=== PATIENT | male | born 1980 | race Caucasian/White ===

== ENCOUNTER 2019-04-23 | Emergency (ER) | payer BC, OTHER ==
[2019-04-23] MEDS ORDERED: PROMETHAZINE INJ 25 MG/ML AMP ONE ×2 (01:01→02:30)
[2019-04-23] MEDS ORDERED: FENTANYL CITR 100 MCG/2 ML ONE ×2 (01:02→02:29)
[2019-04-23] MEDS ORDERED: NA CHLORIDE 0.9% 1,000 ML ONE (01:02)
[2019-04-23 01:15] LABS: Absolute Lymphocytes (CBC) 1.8 K/uL (0.7-4.9); Basophils % 0.6 % (0-1.3); Hematocrit 42.1 % (39.6-49.0); Lymphocytes % 22.2 % (15.3-44.8); MPV 8.6 fL (7.6-11.3); RBC Red Blood Cell Count 5.03 M/uL (4.33-5.43)
[2019-04-23 01:29] LABS: Albumin 3.6 g/dL (3.4-5.0); Bilirubin Direct 0.2 mg/dL (0-0.2); Bilirubin Total 0.7 mg/dL (0.2-1.0); Potassium 3.5 mmol/L (3.5-5.1)
--- NOTE | 2019-04-23 03:22 | EDPHYS ---
Physician Documentation [facility] Name: Rnoaldo Parks Age: 39 yrs Sex: Male : 1980 Arrival Date: 04/23/2019 Time: 00:04 Bed 17 Private MD: Lam Crawford ED Physician Ruiz Cheek HPI: 04/23 03:28 This 39 yrs old Male presents to ER via Ambulatory with complaints of Fever, kdr Vomiting, Abdominal Pain. 03:28 The patient presents with abdominal pain in the lower abdomen. Onset: The kdr symptoms/episode began/occurred suddenly, today. The symptoms do not radiate. Associated signs and symptoms: none. The symptoms are described as achy, sharp, steady, vague. Modifying factors: The symptoms are alleviated by nothing, the symptoms are aggravated by movement, pressure. Severity of pain: At its worst the pain was incapacitating just prior to arrival, in the emergency department the pain is unchanged. The patient has not experienced similar symptoms in the past. The patient has not recently seen a physician. Historical: - Allergies: 00:16 No Known Allergies; hb - Home Meds: 00:16 None [Active]; hb - PMHx: 00:16 None; hb - PSHx: 00:16 None; hb - Immunization history:: Adult Immunizations up to date. - Coronavirus screen:: The patient has NOT traveled to [place] in the past 14 days. The patient has NOT had contact with known/suspected case of Coronavirus? Proceed with normal triage procedures. - Social history:: Smoking status: Patient denies any tobacco usage or history of. - Ebola Screening: : No symptoms or risks identified at this time. ROS: 03:28 Constitutional: Negative for fever, chills, and weight loss, Eyes: Negative for injury, kdr pain, redness, and discharge, Neck: Negative for injury, pain, and swelling, Cardiovascular: Negative for chest pain, palpitations, and edema, Respiratory: Negative for shortness of breath, cough, wheezing, and pleuritic chest pain, Back: Negative for injury and pain, : Negative for injury, bleeding, discharge, and swelling, MS/Extremity: Negative for injury and deformity, Skin: Negative for injury, rash, and discoloration, Neuro: Negative for headache, weakness, numbness, tingling, and seizure activity. Psych: Negative for depression, anxiety, suicide ideation, homicidal ideation, and hallucinations, Allergy/Immunology: Negative for hives, rash, and allergies, Endocrine: Negative for neck swelling, polydipsia, polyuria, polyphagia, and marked weight changes, Hematologic/Lymphatic: Negative for swollen nodes, abnormal bleeding, and unusual bruising. 03:28 Abdomen/GI: Positive for abdominal pain, nausea, vomiting, and diarrhea, Negative for abdominal distension, anorexia, dysphagia, hematemesis, black/tarry stool, rectal pain, rectal bleeding, bowel incontinence. Exam: 03:28 Constitutional: This is a well developed, well nourished patient who is awake, alert, kdr and in no acute distress. Head/Face: Normocephalic, atraumatic. Eyes: Pupils equal round and reactive to light, extra-ocular motions intact. Lids and lashes normal. Conjunctiva and sclera are non-icteric and not injected. Cornea within normal limits. Periorbital areas with no swelling, redness, or edema. Neck: Trachea midline, no thyromegaly or masses palpated, and no cervical lymphadenopathy. Supple, full range of motion without nuchal rigidity, or vertebral point tenderness. No Meningismus. Chest/axilla: Normal chest wall appearance and motion. Nontender with no deformity. No lesions are appreciated. Cardiovascular: Regular rate and rhythm with a normal S1 and S2. No gallops, murmurs, or rubs. Normal PMI, no JVD. No pulse deficits. Respiratory: Lungs have equal breath sounds bilaterally, clear to auscultation and percussion. No rales, rhonchi or wheezes noted. No increased work of breathing, no retractions or nasal flaring. Back: No spinal tenderness. No costovertebral tenderness. Full range of motion. Skin: Warm, dry with normal turgor. Normal color with no rashes, no lesions, and no evidence of cellulitis. MS/ Extremity: Pulses equal, no cyanosis. Neurovascular intact. Full, normal range of motion. Neuro: Awake and alert, GCS 15, oriented to person, place, time, and situation. Cranial nerves II-XII grossly intact. Motor strength 5/5 in all extremities. Sensory grossly intact. Cerebellar exam normal. Normal gait. Psych: Awake, alert, with orientation to person, place and time. Behavior, mood, and affect are within normal limits. 03:28 Abdomen/GI: Inspection: abdomen appears normal, Bowel sounds: active, diminished, in all quadrants, Palpation: soft. Vital Signs: 00:16 BP 116 / 81; Pulse 88; Resp 16; Temp 98.1; Pulse Ox 100% ; Weight 88.45 kg; Height 5 hb ft. 11 in. (180.34 cm); Pain 10/10; 01:30 BP 124 / 78; Pulse 86; Resp 15; Pulse Ox 99% on R/A; hb 02:30 BP 124 / 83; Pulse 69; Resp 14; Pulse Ox 100% on R/A; Pain 9/10; hb 03:02 BP 103 / 62; Pulse 89; Resp 16; Temp 98.7; Pulse Ox 100% ; Pain 6/10; hb 04:21 BP 104 / 58; Pulse 65; Resp 16 S; Temp 98.1(O); Pulse Ox 100% on R/A; Pain 7/10; bb 05:11 BP 112 / 66; Pulse 87; Resp 16 S; Pulse Ox 100% on R/A; bb 00:16 Body Mass Index 27.20 (88.45 kg, 180.34 cm) hb MDM: 03:19 Patient medically screened. kdr 03:28 Data reviewed: vital signs, nurses notes, lab test result(s), radiologic studies. kdr Counseling: I had a detailed discussion with the patient and/or guardian regarding: the historical points, exam findings, and any diagnostic results supporting the discharge/admit diagnosis, lab results, radiology results, the need to transfer to another facility. ED course: The patient had only partial relief after morphine, fentanyl x 2, and Toradol . 04/23 00:29 Order name: Basic Metabolic Panel kdr 04/23 00:29 Order name: CBC with Diff kdr 04/23 00:29 Order name: Creatinine for Radiology kdr 04/23 00:29 Order name: Hepatic Function kdr 04/23 00:29 Order name: Lipase kdr 04/23 01:15 Order name: Creatinine (Radiology Only); Complete Time: 01:39 EDMS 04/23 00:44 Order name: CT Stone Protocol kdr 04/23 01:18 Order name: CBC with Automated Diff; Complete Time: 01:39 EDMS 04/23 01:29 Order name: Basic Metabolic Panel; Complete Time: 01:39 EDMS 04/23 01:29 Order name: Liver (Hepatic) Function; Complete Time: 01:39 EDMS 04/23 01:30 Order name: Lipase; Complete Time: 01:39 EDMS 04/23 02:26 Order name: Urine Dipstick--Ancillary (enter results) ds4 04/23 03:41 Order name: Urine Dipstick-Ancillary; Complete Time: 04:02 EDMS 04/23 00:29 Order name: IV Saline Lock; Complete Time: 00:35 kdr 04/23 00:29 Order name: Labs collected and sent; Complete Time: 00:35 kdr 04/23 00:36 Order name: Bladder Scanner; Complete Time: 00:36 hb Administered Medications: 00:35 Drug: morphine 4 mg Route: IVP; Site: right antecubital; hb 01:05 Follow up: Response: Pain is unchanged, physician notified hb 00:35 Drug: Zofran 4 mg Route: IVP; Site: right antecubital; hb 01:05 Follow up: Response: No adverse reaction hb 01:04 Drug: NS 0.9% 1000 ml Route: IV; Rate: 1 bolus; Site: right antecubital; hb 02:00 Follow up: Response: No adverse reaction; IV Status: Completed infusion; IV Intake: hb 1000ml 01:04 Drug: fentaNYL (PF) 50 mcg Route: IVP; Site: right antecubital; hb 01:40 Follow up: Response: No adverse reaction; RASS: Alert and Calm (0) hb 01:04 Drug: Phenergan 12.5 mg Route: IVP; Site: right antecubital; hb 01:40 Follow up: Response: No adverse reaction hb 01:40 Follow up: Response: No adverse reaction; RASS: Alert and Calm (0) hb 02:32 Drug: Promethazine 12.5 mg Route: IVP; Site: right antecubital; hb 03:34 Follow up: Response: No adverse reaction bb 02:32 Drug: fentaNYL (PF) 50 mcg Route: IVP; Site: right antecubital; hb 03:30 Follow up: Response: No adverse reaction; Pain is decreased; RASS: Drowsy (-1) bb 03:38 Drug: TORadol - Ketorolac 15 mg Route: IVP; Site: right antecubital; bb 04:27 Follow up: Response: No adverse reaction; Pain is decreased bb 04:24 Drug: Flomax 0.8 mg Route: PO; bb 05:12 Follow up: Response: No adverse reaction bb Disposition: 04/23/19 03:19 Transfer ordered to [facility]. Diagnosis are Unspecified renal colic, 5 mm right distal ureter calculus, intractable pain. - Reason for transfer: Higher level of care. - Accepting physician is [facility]. - Condition is Fair. - Problem is new. - Symptoms have improved. Signatures: Dispatcher [employer] EDMS Ruiz Cheek MD MD kdr Cari Long RN RN bb Sherri Scott RN RN Corrections: (The following items were deleted from the chart) 05:12 03:19 04/23/2019 03:19 Transfer ordered to [facility]. bb Diagnosis is Unspecified renal colic; 5 mm right distal ureter calculus, intractable pain. Reason for transfer: Higher level of care. Accepting physician is [facility]. Condition is Fair. Problem is new. Symptoms have improved. kdr
[2019-04-23] MEDS ORDERED: KETOROLAC 30 MG/ML INJ ONE (03:38)
[2019-04-23 03:40] LABS: Urine Blood 1+ (NEG); Urine Glucose NEGATIVE (NEG); Urine Protein 2+ (NEG); Urine Specific Gravity 1.015 (1.005-1.030); Urine pH >8.5 (5.0-7.0)
[2019-04-23] MEDS ORDERED: TAMSULOSIN 0.4 MG SR CAP ONE (04:28)
--- NOTE | 2019-04-23 05:14 | ER ---
Nurse's Notes [facility] Name: Ronaldo Parks Age: 39 yrs Sex: Male : 1980 Arrival Date: 04/23/2019 Time: 00:04 Bed 17 Private MD: Lam Crawford Diagnosis: Unspecified renal colic;5 mm right distal ureter calculus, intractable pain Presentation: 04/23 00:15 Presenting complaint: N/V/D x 3 days, sever lower abdominal pain x 3 hours. Transition hb of care: patient was not received from another setting of care. Onset of symptoms was April 20, 2019. Risk Assessment: Do you want to hurt yourself or someone else? Patient reports no desire to harm self or others. Initial Sepsis Screen: Does the patient meet any 2 criteria? No. Patient's initial sepsis screen is negative. Does the patient have a suspected source of infection? No. Patient's initial sepsis screen is negative. Care prior to arrival: None. 00:15 Method Of Arrival: Ambulatory hb 00:15 Acuity: NARCISO 3 hb Historical: - Allergies: 00:16 No Known Allergies; hb - Home Meds: 00:16 None [Active]; hb - PMHx: 00:16 None; hb - PSHx: 00:16 None; hb - Immunization history:: Adult Immunizations up to date. - Coronavirus screen:: The patient has NOT traveled to [place] in the past 14 days. The patient has NOT had contact with known/suspected case of Coronavirus? Proceed with normal triage procedures. - Social history:: Smoking status: Patient denies any tobacco usage or history of. - Ebola Screening: : No symptoms or risks identified at this time. Screenin:17 Abuse screen: Denies threats or abuse. Denies injuries from another. Nutritional hb screening: No deficits noted. Tuberculosis screening: No symptoms or risk factors identified. Fall Risk None identified. Assessment: 00:10 General: Appears in no apparent distress. uncomfortable, Behavior is cooperative, hb anxious. Pain: Pain currently is 10 out of 10 on a pain scale. Neuro: Level of Consciousness is awake, alert, obeys commands, Oriented to person, place, time, situation. Cardiovascular: Capillary refill < 3 seconds Patient's skin is warm and dry. Respiratory: Airway is patent Respiratory effort is even, unlabored, Respiratory pattern is regular, symmetrical. GI: Abdomen is non-distended, Bowel sounds present X 4 quads. Abd is soft and non tender X 4 quads. Reports diarrhea, nausea, vomiting. : Reports inability to void. EENT: No signs and/or symptoms were reported regarding the EENT system. Derm: Skin is pink, warm \T\ dry. Musculoskeletal: No signs and/or symptoms reported regarding the musculoskeletal system. 01:00 Reassessment: Patient appears in no apparent distress at this time. Patient and/or hb family updated on plan of care and expected duration. Pain level reassessed. Patient is alert, oriented x 3, equal unlabored respirations, skin warm/dry/pink. 01:50 Reassessment: Patient appears in no apparent distress at this time. Patient and/or hb family updated on plan of care and expected duration. Pain level reassessed. Patient is alert, oriented x 3, equal unlabored respirations, skin warm/dry/pink. 02:34 Reassessment: Pt c/o suprapubic pain 9/. Dr. Cheek notified, repeat Fentanyl and hb Phenergan administered as ordered. NAD. VSS. Awaiting CT results at this time. remains at bedside. 04:27 Reassessment: Patient is alert, oriented x 3, equal unlabored respirations, skin bb warm/dry/pink. pt is resting quietly, IV site intact, patent, pt instructed on need for transfer verbalized understanding of and agrees to plan of care. 04:43 Reassessment: report called to Angie Duron RN for [facility]. bb 05:09 Reassessment: Patient is alert, oriented x 3, equal unlabored respirations, skin bb warm/dry/pink. [facility] at bedside for transport to [facility], IV site intact with no erythema or edema noted. Vital Signs: 00:16 BP 116 / 81; Pulse 88; Resp 16; Temp 98.1; Pulse Ox 100% ; Weight 88.45 kg; Height 5 hb ft. 11 in. (180.34 cm); Pain 10/10; 01:30 BP 124 / 78; Pulse 86; Resp 15; Pulse Ox 99% on R/A; hb 02:30 BP 124 / 83; Pulse 69; Resp 14; Pulse Ox 100% on R/A; Pain 9/10; hb 03:02 BP 103 / 62; Pulse 89; Resp 16; Temp 98.7; Pulse Ox 100% ; Pain 6/10; hb 04:21 BP 104 / 58; Pulse 65; Resp 16 S; Temp 98.1(O); Pulse Ox 100% on R/A; Pain 7/10; bb 05:11 BP 112 / 66; Pulse 87; Resp 16 S; Pulse Ox 100% on R/A; bb 00:16 Body Mass Index 27.20 (88.45 kg, 180.34 cm) hb ED Course: 00:04 Patient arrived in ED. es 00:04 Lam Crawford MD is Private Physician. es 00:08 Ruiz Cheek MD is Attending Physician. kdr 00:14 Sherri Scott, LOPEZ is Primary Nurse. hb 00:15 Triage completed. hb 00:16 Arm band placed on right wrist. hb 00:29 Inserted saline lock: 20 gauge in right antecubital area, using aseptic technique. hb Blood collected. 00:35 Patient has correct armband on for positive identification. Bed in low position. Call hb light in reach. Side rails up X 1. 04:28 No provider procedures requiring assistance completed. Patient transferred, IV remains bb in place. Administered Medications: 00:35 Drug: morphine 4 mg Route: IVP; Site: right antecubital; hb 01:05 Follow up: Response: Pain is unchanged, physician notified hb 00:35 Drug: Zofran 4 mg Route: IVP; Site: right antecubital; hb 01:05 Follow up: Response: No adverse reaction hb 01:04 Drug: NS 0.9% 1000 ml Route: IV; Rate: 1 bolus; Site: right antecubital; hb 02:00 Follow up: Response: No adverse reaction; IV Status: Completed infusion; IV Intake: hb 1000ml 01:04 Drug: fentaNYL (PF) 50 mcg Route: IVP; Site: right antecubital; hb 01:40 Follow up: Response: No adverse reaction; RASS: Alert and Calm (0) hb 01:04 Drug: Phenergan 12.5 mg Route: IVP; Site: right antecubital; hb 01:40 Follow up: Response: No adverse reaction hb 01:40 Follow up: Response: No adverse reaction; RASS: Alert and Calm (0) hb 02:32 Drug: Promethazine 12.5 mg Route: IVP; Site: right antecubital; hb 03:34 Follow up: Response: No adverse reaction bb 02:32 Drug: fentaNYL (PF) 50 mcg Route: IVP; Site: right antecubital; hb 03:30 Follow up: Response: No adverse reaction; Pain is decreased; RASS: Drowsy (-1) bb 03:38 Drug: TORadol - Ketorolac 15 mg Route: IVP; Site: right antecubital; bb 04:27 Follow up: Response: No adverse reaction; Pain is decreased bb 04:24 Drug: Flomax 0.8 mg Route: PO; bb 05:12 Follow up: Response: No adverse reaction bb Intake: 02:00 IV: 1000ml; Total: 1000ml. hb Outcome: 03:19 ER care complete, transfer ordered by . kdr 04:28 Instructed on the need for transfer. bb 04:28 Condition: stable bb 05:11 Transferred by ground EMS to [facility], Transfer form completed. bb X-rays sent w/ patient. 05:12 Patient left the ED. bb Signatures: Ruiz Cheek MD MD kdr Pham Weber Brenda, RN RN bb Sherri Scott, RN RN hb
[2019-04-23 05:22] VITALS: O2SAT 100
[2019-04-23 05:25] VITALS: TEMP 98.1
[2019-04-23 05:27] VITALS: BP 112/66
--- NOTE | 2019-04-25 12:24 | RAD REPORT ---
EXAM DESCRIPTION: CT - Stone Protocol - 04/23/2019 4:25 am CLINICAL HISTORY: The patient is 39 years old and is Male; ABD PAIN TECHNIQUE: Axial computed tomography images of the abdomen and pelvis without intravenous contrast. Sagittal and coronal reformatted images were created and reviewed. This CT exam was performed usi ng one or more of the following dose reduction techniques: automated exposure control, adjustment o f the mA and/or kV according to patient size, and/or use of iterative reconstruction technique. COMPARISON: No relevant prior studies available. FINDINGS: LUNG BASES: Unremarkable. No mass. No consolidation. ABDOMEN: LIVER: Homogeneous without focal mass. GALLBLADDER AND BILE DUCTS: No calcified stones. No ductal dilation. PANCREAS: Unremarkable. No ductal dilation. SPLEEN: Unremarkable. ADRENALS: Unremarkable. No mass. KIDNEYS AND URETERS: Mild right hydroureteronephrosis is present secondary to a 5 mm distal righ t ureteral calculus. Edema of the right kidney with associated perinephric and periureteral strandi ng is present. The left kidney is normal. A punctate left intrarenal calcification is present. STOMACH AND BOWEL: The stomach is distended with fluid and food contents. The small bowel is nor mal in caliber. Stool is present throughout colon. There is no mucosal thickening or evidence of arnold l obstruction. PELVIS: APPENDIX: The appendix is normal in caliber without surrounding inflammation. BLADDER: The bladder is not well distended. REPRODUCTIVE: Unremarkable as visualized. ABDOMEN and PELVIS: INTRAPERITONEAL SPACE: Unremarkable. No free air. No significant fluid collection. BONES/JOINTS: No acute fracture. SOFT TISSUES: The soft tissues are normal. VASCULATURE: Unremarkable. No abdominal aortic aneurysm. LYMPH NODES: Unremarkable. No enlarged lymph nodes. IMPRESSION: Mild right hydroureteronephrosis is present secondary to a 5 mm distal right ureteral ca lculus. Electronically signed by: Laura Rogers MD 04/23/2019 2:38 AM LITERACY COORDINATOR Due to temporary technical issues with the PACS/Fluency reporting system, reports are being signed by the in house radiologist as a courtesy to ensure prompt reporting. The interpreting radiologist is f ully responsible for the content of the report.
== END 2019-04-23 05:12 | disposition short-term general hospital (02) ==
LOC: ER
DX: N20.1 Calculus of ureter (principal); N23 Unspecified renal colic
CPT/HCPCS: 96361; 85025; 80048; 36415; 80076; 81003; 83690; 76377; 74176; 96375; 96374; 99285; J2550 ×2; J3010 ×2; J7030